=== PATIENT | female | born 1955 | race Hispanic/Latino ===

== ENCOUNTER 2016-07-21 11:51 | Outpatient (CLI) | payer OTHER ==
[2016-07-21] MEDS ORDERED: PROVENTIL IH ONE (12:00)
== END 2016-07-21 11:52 | disposition home or self-care (01) ==
LOC: PF 11:51
PROVIDERS: ATTEND Internal Medicine
DX: J44.9 Chronic obstructive pulmonary disease, unspecified (principal); J98.4 Other disorders of lung; Z99.81 Dependence on supplemental oxygen
CPT/HCPCS: 94060; 94640; 94729